=== PATIENT | male | born 1940 | race African-American/Black ===

== ENCOUNTER → 2024-03-22 | Outpatient (CLI) | payer MEDICARE ==
--- NOTE | 2024-03-23 13:38 | MR ---
EXAMINATION TYPE: MR neck wo/w con DATE OF EXAM: 03/22/2024 7:24 PM COMPARISON: none. 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 IV Contrast: 7.5 mL Gadobutrol FINDINGS: Ill-defined soft tissue is seen in the area of prior surgery with soft tissue mass measurin g 14 x 13 mm with more irregular soft tissue also present tracking close to the skin area of enhancem ent measures 36 x 18 x 13 mm. The globes and orbits density no abnormal postcontrast enhancement. Bilaterally aphakia. Mild cerebra l atrophy with proportional dilation of ventricular system. Flow voids are maintained. The parotid gl and is unremarkable. IMPRESSION: Enhancing hazy soft tissue in the right lateral face superior and medial to the parotid gland. Findi ngs suspicious for recurrent neoplasm until proven otherwise. Consider interrogation with ultrasound with possible biopsy. Clinical correlation also recommended with pathology margins. Consider follow-u p exam after treatment for infection to exclude treatment changes. [facility], , 03/23/2024 1:36 PM
== END | disposition home or self-care (01) ==
LOC: RADMRIMAIN 18:03
PROVIDERS: ATTEND Dermatology MOHS-Micrographic Surgery
DX: C44.309 Unspecified malignant neoplasm of skin of other parts of face (principal); G31.9 Degenerative disease of nervous system, unspecified; H27.03 Aphakia, bilateral; Z85.828 Personal history of other malignant neoplasm of skin
CPT/HCPCS: 70543; A9585

== ENCOUNTER → 2024-04-27 | Outpatient (CLI) | payer MEDICARE ==
--- NOTE | 2024-04-29 22:47 | PE ---
EXAMINATION TYPE: PET CT fusion skull to thigh DATE OF EXAM: 04/27/2024 COMPARISON: 03/22/2024 MRI Prior PET/CT: None CLINICAL INDICATION: Male, 83 years old with history of C07 RIGHT FACIAL CANCER, TECHNIQUE: Following the intravenous administration of 11.69 mCi of F-18 FDG, whole body images are performed from the skull base to the midthigh. Images are reviewed on the computer in the coronal, a xial, and sagittal planes. Reconstructed rotating images are created on independent workstation and reviewed on the computer. A localization and attenuation correction CT is performed in conjunction with the PET scan. DLP: 769.56 mGycm SCAN: Initial Blood glucose: 91 mg/dL Average Mediastinum SUV: 2.25 Average Liver SUV: 2.7 FINDINGS: Dedicated Head and Neck: There is a focus of radiotracer accumulation at the level of the right zygom atic arch with an SUV of 8.22 adjacent skin thickening is evident.. NECK: Uptake within the right cheek is again evident. No additional suspicious uptake within the hea d and neck evident THORAX: No abnormal uptake ABDOMEN: No abnormal uptake. The large cyst is no abnormal uptake. This is photopenic PELVIS: No abnormal uptake OSSEOUS STRUCTURES: No suspicious uptake LOCALIZATION CT: There is an extremely large cyst of uncertain origin. Renal COMPARISON: Cyst is felt to be most likely. IMPRESSION: 1. Focal radiotracer accumulation within the subcutaneous tissue right cheek at the level of the zygo matic arch. Cutaneous uptake is also noted adjacent. Findings are compatible with neoplasm.. 2. No suspicious distant metastasis [facility], Workstation: [facility], 04/29/2024 10:45 PM
== END | disposition home or self-care (01) ==
LOC: RADPETMAIN 06:52
PROVIDERS: ATTEND Otolaryngology
DX: C07 Malignant neoplasm of parotid gland (principal)
CPT/HCPCS: 78815; A9552

== ENCOUNTER → 2024-05-01 | Outpatient (CLI) | payer MEDICARE ==
--- NOTE | 2024-05-01 17:06 | CA ---
Transthoracic Echo Report Name: Taqueria Neves Age: 83 Gender: M : 1940 Exam Date: 05/01/2024 12:22 Exam Location: [facility] Ht (in): 67 Wt (lb): 175 Ordering Physician: Twin Gautam MD Attending/Referring Phys: Head Orthopedic Team Physician Criselda Marino RDCS Procedure CPT: Indications: R01.1 Murmur Cardiac Hx: Technical Quality: Fair Contrast 1: Total Dose (mL): Contrast 2: Total Dose (mL): MEASUREMENTS (Male / Female) Normal Values 2D ECHO LV Diastolic Diameter PLAX 4.9 cm 4.2 - 5.9 / 3.9 - 5.3 cm LV Systolic Diameter PLAX 3.2 cm IVS Diastolic Thickness 1.1 cm 0.6 - 1.0 / 0.6 - 0.9 cm LVPW Diastolic Thickness 1.2 cm 0.6 - 1.0 / 0.6 - 0.9 cm LV Relative Wall Thickness 0.5 RV Internal Dim ED PLAX 2.3 cm LVOT Diameter 1.6 cm LA Systolic Diameter LX 4.3 cm 3.0 - 4.0 / 2.7 - 3.8 cm LV Diastolic Volume MOD BP 47.3 cm??? 67 - 155 / 56 - 104 cm??? LV Systolic Volume MOD BP 18.6 cm??? 22 - 58 / 19 - 49 cm??? LV Ejection Fraction MOD BP 60.8 % >= 55 % LV Cardiac Index MOD BP 854.2 cm???/min???m??? LV Diastolic Volume MOD 4C 57.6 cm??? LV Systolic Volume MOD 4C 18.5 cm??? LV Ejection Fraction MOD 4C 67.9 % LV Cardiac Index MOD 4C 1160.1 cm???/min???m??? LV Diastolic Length 4C 6.3 cm LV Systolic Length 4C 5.4 cm LV Diastolic Volume MOD 2C 37.9 cm??? LV Systolic Volume MOD 2C 18.2 cm??? LV Ejection Fraction MOD 2C 51.9 % LV Cardiac Index MOD 2C 583.1 cm???/min???m??? LV Diastolic Length 2C 6.1 cm LV Systolic Length 2C 5.5 cm M-MODE Aortic Root Diameter MM 3.1 cm LA Systolic Diameter MM 4.4 cm LA Ao Ratio MM 1.4 AV Cusp Separation MM 1.1 cm DOPPLER AV Peak Velocity 207.9 cm/s AV Peak Gradient 17.3 mmHg AV Mean Velocity 140.1 cm/s AV Mean Gradient 10.1 mmHg AV Velocity Time Integral 43.1 cm AI Peak Velocity 288.7 cm/s AI Peak Gradient 33.3 mmHg AI Pressure Half Time 1505.1 ms LVOT Peak Velocity 80.2 cm/s LVOT Peak Gradient 2.6 mmHg LVOT Velocity Time Integral 18.6 cm LVOT Stroke Volume 38.1 cm??? LVOT Stroke Volume Index 19.9 ml/m??? LVOT Cardiac Index 1130.6 cm???/min???m??? AV Area Cont Eq vti 0.9 cm??? AV Area Cont Eq pk 0.8 cm??? Mitral E Point Velocity 52.3 cm/s Mitral A Point Velocity 76.0 cm/s Mitral E to A Ratio 0.7 MV Deceleration Time 253.7 ms MV E' Velocity 3.9 cm/s Mitral E to MV E' Ratio 13.4 TR Peak Velocity 261.8 cm/s TR Peak Gradient 27.4 mmHg Right Ventricular Systolic Press 37.5 mmHg FINDINGS Left Ventricle Left ventricular ejection fraction is estimated at 55-60 %. Normal left ventricular systolic function with no obvious regional wall motion abnormalities. Left ventricular cavity size normal. Left ventricular wall thickness normal. Right Ventricle Mild right ventricular dilatation. Mild pulmonary hypertension. Right Atrium Mild right atrial dilatation. Left Atrium Mildly increased left atrial diameter. Mitral Valve Structurally normal mitral valve. Trace to mild mitral regurgitation. No mitral stenosis. Aortic Valve Trileaflet aortic valve. Mild aortic stenosis with a peak gradient of 17 mmHg and a mean gradient of 10 mmHg. Mild aortic regurgitation. Tricuspid Valve Structurally normal tricuspid valve. Mild tricuspid regurgitation. No tricuspid stenosis. Pulmonic Valve Structurally normal pulmonic valve. Trace pulmonic regurgitation. No pulmonic stenosis. Pericardium No pericardial or pleural effusion. Aorta Normal size aortic root and proximal ascending aorta. CONCLUSIONS Normal LV function Mild aortic regurgitation Previewed by: Dr. William Jenkins MD (Electronically Signed) Final Date: 01 May 2024 17:05
== END | disposition home or self-care (01) ==
LOC: RADECHMAIN 12:11
PROVIDERS: ATTEND Family Medicine
DX: I27.20 Pulmonary hypertension, unspecified (principal); I35.0 Nonrheumatic aortic (valve) stenosis; I07.1 Rheumatic tricuspid insufficiency; R01.1 Cardiac murmur, unspecified
CPT/HCPCS: 93306